=== PATIENT | male | born 1995 | race Asian ===

== ENCOUNTER 2017-11-14 14:46 | Inpatient (IN) | payer OTHER ==
--- NOTE | 2017-11-14 15:01 | EDPHY ---
H & P Time Seen by Provider: 11/14/17 14:57 Medical Decision Making ED Course/Re-evaluation: CHIEF COMPLAINT: States that he wants to hurt himself but he does not want to kill himself or hurt anyone else. HISTORY OF PRESENT ILLNESS: 22-year-old male who sees a counselor regularly. He male with this counselor today and he does not feel like he can be safe in his counselor does not feel like the patient can be safe. Both agree that the patient is not suicidal despite the fact that the deputy county counsel put him on an M1 hold. This patient has done little bit of superficial cutting but he is certainly is not suicidal I have asked him several times. REVIEW OF SYSTEMS: A 10 point review of systems was performed and is negative with the exception of the elements mentioned in the history of present illness. PHYSICAL EXAM: General Appearance: Alert, well hydrated, appropriate, and non-toxic appearing. Head: Atraumatic without scalp tenderness or obvious injury Eyes: Pupils equal, round, reactive to light and accommodation, EOMI, no trauma , no injection. Ears: Clear bilaterally, no perforation, normal landmarks Nose: Atraumatic, no rhinorrhea, clear. Throat: There is no erythema or exudates, no lesions, normal tonsils, mucus membranes moist. Neck: Supple, 2+ carotid upstroke, nontender, no lymphadenopathy. Respiratory: No retractions, no distress, no wheezes, and no accessory muscle use. Lungs are clear to auscultation bilaterally. Cardiovascular: Regular rate and rhythm, no murmurs, rubs, or gallops. Bilateral carotid, radial, dorsalis pedis, and posterior tibial pulses intact. Good capillary refill all extremities. Gastrointestinal: Abdomen is soft, nontender, non-distended, no masses, no rebound, no guarding, no peritoneal signs. Musculoskeletal: Normal active ROM of all extremities, atraumatic. Neurological: Alert, appropriate, and interactive. The patient has normal DTRs and non-focal cranial nerves, motor, sensory, and cerebellar exam. Skin: Few superficial scratches in left volar forearm do not require repair just cleaning which we have done. No rashes, good turgor, no nodules on palpation. Past medical history: Noncontributory, outside of mild psychiatric disease probably borderline personality Past surgical history: Noncontributory Family history: Noncontributory Social history: Single, student, does not abuse tobacco drugs or alcohol DIFFERENTIAL DIAGNOSIS: The differential diagnosis for the patient's depression included but was not limited to functional and major depression, situational depression, medication side effect, drugs, and alcohol abuse. MEDICAL DECISION MAKING: Patient is in no acute distress and is hemodynamically stable. We are awaiting psychiatric team's evaluation. Patient has known history of psychiatric disorders and is here for evaluation. Departure - Departure Clinical Impression: Borderline personality disorder
--- NOTE | 2017-11-14 15:01 | EDPHY ---
H & P Time Seen by Provider: 11/14/17 14:57 Medical Decision Making ED Course/Re-evaluation: CHIEF COMPLAINT: HISTORY OF PRESENT ILLNESS: must have 4 elements: Location, Quality, Severity , Duration, Timing, Context, Modifying Factors, Associated Signs and Symptoms REVIEW OF SYSTEMS: A 10 point review of systems was performed and is negative with the exception of the elements mentioned in the history of present illness. PHYSICAL EXAM: HR, BP, O2 Sat, RR. Temp noted General Appearance: Alert, well hydrated, appropriate, and non-toxic appearing. Head: Atraumatic without scalp tenderness or obvious injury Eyes: Pupils equal, round, reactive to light and accommodation, EOMI, no trauma , no injection. Ears: Clear bilaterally, no perforation, normal landmarks Nose: Atraumatic, no rhinorrhea, clear. Throat: There is no erythema or exudates, no lesions, normal tonsils, mucus membranes moist. Neck: Supple, 2+ carotid upstroke, nontender, no lymphadenopathy. Respiratory: No retractions, no distress, no wheezes, and no accessory muscle use. Lungs are clear to auscultation bilaterally. Cardiovascular: Regular rate and rhythm, no murmurs, rubs, or gallops. Bilateral carotid, radial, dorsalis pedis, and posterior tibial pulses intact. Good capillary refill all extremities. Gastrointestinal: Abdomen is soft, nontender, non-distended, no masses, no rebound, no guarding, no peritoneal signs. Musculoskeletal: Normal active ROM of all extremities, atraumatic. Neurological: Alert, appropriate, and interactive. The patient has normal DTRs and non-focal cranial nerves, motor, sensory, and cerebellar exam. Skin: No rashes, good turgor, no nodules on palpation. Past medical history: Past surgical history: Family history: Social history: DIAGNOSTICS/PROCEDURES/CRITICAL CARE TIME: DIFFERENTIAL DIAGNOSIS: MEDICAL DECISION MAKING:
[2017-11-14 16:14] LABS: PLATELET COUNT 312 10^3/uL (150-400)
[2017-11-14] MEDS ORDERED: MAG HYDROX/AL HYDROX/SIMETH 30 ML UDCUP PO PRN (21:06)
[2017-11-14] MEDS ORDERED: LORazepam 0.5 MG TAB PO PRN (21:06)
[2017-11-14] MEDS ORDERED: MAGNESIUM HYDROXIDE 30 ML UDCUP PO PRN (21:06)
[2017-11-14] MEDS ORDERED: ACETAMINOPHEN 325 MG TAB PO PRN (21:06)
[2017-11-14] MEDS ORDERED: NICOTINE POLACRILEX 2 MG GUM B PRN (21:06)
[2017-11-14] MEDS: MELATONIN 3 MG TAB PO PRN (21:44)
--- NOTE | 2017-11-15 12:05 | BAPA ---
[f rep st] ADMISSION PSYCHIATRIC ASSESSMENT DATE OF SERVICE: 11/15/2017 CHIEF COMPLAINT: "I have been feeling really down for the last year. There is no possibility for me to be happy in the future, so what's the point." HISTORY OF PRESENT ILLNESS: The patient is a 22-year-old Citizen Of [place] male, who is currently a student at the [employer]. He was brought in by police after presenting twice in 4 days to the [facility] reporting thoughts of suicide and self-injurious behaviors. He apparently had been experiencing a tremendous amount of internal conflict that had begun to boil over for the last severa l weeks. He states that he has been feeling "super sad" for about a year due to feeling socially iso lated. He states that he was raised with 3 sisters in a fairly cloistered environment in [place] an d only had girls for friends. He states that when he came here 2 years ago, he had no understanding of how to interact with men, and again formed friendships only with women. He states that this was v nigel fulfilling to him but that on several occasions they were unable to remain friends with him becau se their boyfriends got upset. He states that he also has come to terms with being homosexual and st ates that this is completely against his social and congregation upbringing. He states that homosexuali ty is illegal in [place] and punishable for up to 20 years in custodial. It is also against the teachi ngs of his Islamic mina, and he is very conflicted about this. He states that he does not want to b e homosexual and is sad that he knows he is. He also was afraid that he will be found out and be pun ished by his family and possibly kicked out of school and made to return to [place] on a morals viol ation. He states he knows someone to whom this happened recently. He states, "I can't let my guard down or people will find out." He states that he feels like he hides frequently and does not reveal his true nature, and that there is a lot of conflicts related to this as well. He reports that his m ood varies greatly and that typically at the beginning of the week, he will be hopeful that he will h ave a good week, but that as the week progresses, he becomes more and more hopeless, and by Tuesday ev ening, he states that he will simply "cry it out." His housemate is also from [place], but works on Tuesday evenings and the patient states he typically spends the 4 or 5 hours alone crying because he feels sad. He also has begun cutting himself with a box finisher "to let it out and turn emotional xavier n into physical pain." He states that this behavior has escalated as he has become more frustrated a nd emotional recently. He states that he has cut himself several times recently and does not remembe r it, and feels out of control of this behavior. He states, "I need to be here; I am not safe. I ca n't resist hurting myself right now." He states he has had some thoughts of suicide as well, mostly related to his comment that there is no possibility for happiness in his future. He has no specific plan for that. He states that he is willing to participate in psychotherapy and wants to get establi shed with the [facility]. PAST PSYCHIATRIC HISTORY: Noncontributory for any previous psychiatric treatments. He has had 2 serena luations at the [facility] in 4 days and both times was placed on M1 hold. ALLERGIES: No known medical allergies. CURRENT MEDICATIONS: The patient takes inmy-eca-ufhwxyl melatonin and Saint Chuy's Wort as needed. SOCIAL HISTORY: The patient was born and raised in [place]. He is the 2nd of 4 siblings, having 3 sisters. His parents are both teachers. 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 His school is paid for by a company in [place] th at then he has a 6 year work responsibility to when he returns. He denies any other stresses at this time, stating that he has plenty of money, secure housing, and is doing well in school. SUBSTANCE ABUSE HISTORY: The patient does not use substances of any kind. FAMILY HISTORY: The patient states that 1 of his sisters was admitted for "mental problems" after sh e took some form of medication for her migraine headaches. He denies any family history of suicide. ADMISSION LABORATORY: CBC is normal. Serum chemistries were normal. Urine drug screen was negative for all substances, and alcohol was less than detectable. MENTAL STATUS EXAMINATION: Reveals a healthy-appearing, adequately groomed, pleasant and cooperative young male. He interacts well with the examiner maintaining good eye contact and a calm and pleasan t demeanor. His affect is slightly blunted, dysphoric, stable, and appropriate. His mood is describ ed as "pretty sad." His thought process is linear and goal directed. His thought content reveals no evidence of psychosis. He is alert and oriented to person, place, time, and situation, and his sens orium is clear. He denies any thoughts of suicide at this time, though states he feels unsafe to be out of the hospital. His intellect appears to be average to above average as evidenced by his educat ional history, fund of knowledge, and vocabulary. His insight and judgment appear to be good. IMPRESSION: Possible major depressive disorder, single episode, severe without psychosis, panic symp toms ,social stresses, marginal support, suicidal thoughts and self-injurious behaviors. The patient is a pleasant 22-year-old male, who presents at this time with lots of internal conflict regarding his sexuality and his societal norms. He appears depressed and anxious and it is difficult to completely sort out that which is the response to the obvious conflicts versus possibly now growt h of a biologic major depression. The patient states he is open to consideration of medications and I reviewed with him the possible use of citalopram or escitalopram for his anxiety and mood problems. The risks, benefits, and alternatives of both of these are reviewed, and he states he will consider that. PLAN: 1. Admit to behavior health services inpatient unit on an M1 hold. 2. Monitor closely for safety given his ongoing thoughts of self-injurious behaviors and suicide. 3. Consider use of citalopram or escitalopram to help ameliorate his anxiety and mood problems. 4. Engage in individual, group, and milieu psychotherapies and active discharge planning in order to bridge his treatment back to the [facility]. Estimated length of stay is 3-5 days. /[id number]/MODL
--- NOTE | 2017-11-15 20:19 | GCON ---
[f rep st] CONSULTATION INTERNAL MEDICINE CONSULTATION DATE OF CONSULTATION: 11/15/2017 REFERRING PHYSICIAN: Brendan Johnson MD REASON FOR REFERRAL: Medical clearance for inpatient behavioral health stay. HISTORY OF PRESENT ILLNESS: This patient came to the emergency department yesterday from the [facility] out of concern that he could not keep himself safe at home. He had done some cutting on his forearm with a box attacher knife. He was evaluated by the mental health team and admitted for further psychiatric care. He currently is without any acute complaints, though he reports feeling fatigued. PAST MEDICAL HISTORY: He denies any history of medical illnesses. PAST SURGICAL HISTORY: He has not had any surgeries. MEDICATIONS: He was on no medications. ALLERGIES: There are no known drug allergies. SOCIAL HISTORY: He is a [place] who is studying [employer] in the [employer]. He lives with a roommate. He is a nonsmoker and nondrinker. FAMILY HISTORY: Noncontributory. REVIEW OF SYSTEMS: Other than feeling tired and having scratches on his skin, a 10 point review of systems was conducted and was negative. PHYSICAL EXAM: VITAL SIGNS: Blood pressure is 129/57, heart rate is 80, respiratory rate is 14, oxygen saturation is 97% on room air. Temperature is 36.5 degrees centigrade. His weight is 60 kg, for a body mass index of 22. GENERAL: This is a well-nourished, well-developed man, appears his chronologic age, cooperative and in no acute distress. HEENT: Extraocular movements are intact. Mucous membranes are moist. Dentition is in good condition. He has a mildly crowded airway, Mallampati class 3. NECK: Supple. HEART: There is a regular rate and rhythm, with no murmurs, rubs, or gallops. LUNGS: Clear to auscultation bilaterally. ABDOMEN: Soft, nontender, nondistended, with normoactive bowel sounds. EXTREMITIES: There is no cyanosis, clubbing, or edema. NEUROLOGIC: He is alert and oriented x3. Cranial nerves 2-12 are grossly intact. There is no focal weakness. Sensation is intact to light touch. LABORATORY DATA: Studies from the emergency department: CBC was overall within normal limits. There was a decrement of absolute eosinophils of no clinical significance. Serum chemistry revealed normal renal function and electrolytes. Toxicology screen in the serum was negative for salicylates, acetaminophen and ethyl alcohol, and in the urine was negative for any substances of abuse. SKIN: There are multiple, closely spaced, superficial lacerations on his left palmar forearm. ASSESSMENT/RECOMMENDATIONS: 1. Mental health issues pending further evaluation and management per Psychiatry and the mental health team. 2. Superficial lacerations. Expect spontaneous healing. There are no signs or symptoms of infection, and no need for any specific treatment. I see no medical contraindications to this patient's continued stay on the inpatient behavioral health unit, or to any psychiatric medications or procedures. Thank you very much for including me in the care of this patient, and please do not hesitate to contact me or the hospitalist service should there be need for further medical evaluation. /[id number]/MODL MTDD
[2017-11-15] MEDS: MELATONIN 3 MG TAB PO PRN (21:15)
--- NOTE | 2017-11-16 15:59 | SOAPPROG ---
MIKAELA Progress Note Assessment/Plan: Assessment: Plan: 11/16/17 15:58 Mood/anxiety: Improved in controlled setting. He may be putting on a false- positive presentation at this point. Will start citalopram, monitor. Possible d/c tomorrow if all is well. Subjective: Pt seen, discussed with staff. Reports feeling "much better." He states the SI have resolved completely. He believes this is "because I was able to get away and clear my thoughts." He states he is feeling "a lot less anxious" also. We discussed his chronic anxiety and recently more depressed mood and he is agreeable to a trial of citalopram. The risks, benefits and alternatives of this are reviewed. He states he believes he is safe to return home. Objective: Vital Signs Temp Pulse Resp BP Pulse Ox 36.3 C 73 15 120/56 L 94 11/16/17 06:00 11/16/17 06:00 11/16/17 06:00 11/16/17 06:00 11/16/17 06:00 MSE: Calm, coop. Affect is bright, smiling, somewhat incongruent to situation. Mood is "good." TP linear. TC reveals no evidence of psychosis. Denies SI/HI/. - Time Spent With Patient Time Spent With Patient: 25" ICD10 Worksheet Patient Problems: Problems Problem Status Onset Borderline personality disorder Acute
[2017-11-16] MEDS: CITALOPRAM 20 MG TAB PO SCH (16:45)
[2017-11-16] MEDS: MELATONIN 3 MG TAB PO PRN (20:19)
[2017-11-17 06:49] VITALS: RESP 14; TEMP 97.3
[2017-11-17 06:50] VITALS: BP 118/56; PULSE 72; O2SAT 93
[2017-11-17] MEDS: CITALOPRAM 20 MG TAB PO SCH (09:10)
== END 2017-11-17 14:25 | disposition home or self-care (01) | DRG 885 ==
LOC: EEVIPCON 14:46 → BBEH 20:35
PROVIDERS: ADMIT Psychiatry & Neurology Psychiatry; ATTEND Psychiatry & Neurology Psychiatry
DX: F32.2 Major depressive disorder, single episode, severe without psychotic features (principal)
CPT/HCPCS: 80305; G0480